=== PATIENT | female | born 1940 | race Caucasian/White ===

== ENCOUNTER → 2021-03-29 | Outpatient (CLI) | payer MEDICARE, OTHER ==
[2021-03-29 12:41] LABS: ALBUMIN 3.6 GM/DL (3.2-5.2); ALT/SGPT 18 U/L (12-78); AMYLASE 48 U/L (25-115); BILIRUBIN,DIRECT < 0.1 MG/DL (0.0-0.2); BILIRUBIN,TOTAL 0.3 MG/DL (0.2-1.0); LIPASE 103 U/L (73-393); TOTAL PROTEIN 6.8 GM/DL (6.4-8.2)
== END ==
LOC: M LAB 11:03
PROVIDERS: ATTEND Internal Medicine Gastroenterology
DX: R10.11 Right upper quadrant pain (principal)

== ENCOUNTER → 2021-06-28 | Outpatient (CLI) | payer MEDICARE, OTHER ==
[~2021-06-28] MED LIST: B-12100021 PO; CHRO400T4 PO; CVS5000S2 SL; D 1010002 PO; D-MA500C2 PO; FISH1000 PO; GYMNPOW PO; LEVO100T54 PO; LUTE20CA11 PO; METF-817 PO; OMEP-221 PO; PREDOPD OD; VITA250T20 PO; VITMTA PO; ZINC1TAB2 PO; [UNRECOGNIZED DRUG - CODE] PO; macuguard PO
== END ==
LOC: M LABSMTC 11:07
PROVIDERS: ATTEND Anesthesiology
DX: Z01.812 Encounter for preprocedural laboratory examination (principal); Z20.822 Contact with and (suspected) exposure to COVID-19

== ENCOUNTER 2021-07-03 06:34 | Day surgery (SDC) | payer MEDICARE, OTHER ==
[~2021-07-03] VITALS: Ht 152.4 cm; Wt 77.1 kg
[~2021-07-03 06:34] MED LIST changes: +NS 1,000 ML IV ONE; -OMEP-221 PO; +OMEP40CA5 PO
[2021-07-03] MEDS ORDERED: LIDOCAINE 2% 100MG/5ML SDV (FOR ANES.) As Ordered ONE (07:16)
[2021-07-03] MEDS ORDERED: propofoL 200 MG/20 ML VIAL As Ordered ONE (07:16)
[2021-07-03] MEDS ORDERED: fentaNYL 100 MCG/2 ML INJECTION As Ordered ONE (07:17)
[2021-07-03 08:15] VITALS: BP 133/64
[2021-09-26] MEDS ORDERED: DOCU100C16 PO (10:13)
[2021-09-26] MEDS ORDERED: LEVO50TA45 PO (10:13)
[2021-09-26] MEDS ORDERED: METF500T13 PO (10:13)
[2021-09-26] MEDS ORDERED: ASCO500T PO (10:20)
== END 2021-07-03 08:25 | disposition home or self-care (01) ==
LOC: M OPP 06:34
PROVIDERS: ATTEND Internal Medicine Gastroenterology
DX: R10.13 Epigastric pain (principal); R13.10 Dysphagia, unspecified; K22.2 Esophageal obstruction; K57.10 Diverticulosis of small intestine without perforation or abscess without bleeding; E11.9 Type 2 diabetes mellitus without complications; E03.9 Hypothyroidism, unspecified; Z88.5 Allergy status to narcotic agent; Z79.899 Other long term (current) drug therapy
CPT/HCPCS: 43239; 43249; 88305; J3010

== ENCOUNTER → 2021-09-28 | Outpatient (CLI) | payer MEDICARE, OTHER ==
[~2021-09-28] MED LIST changes: +ASCO500T PO; +DOCU100C16 PO; +LEVO50TA45 PO; +METF500T13 PO; -NS 1,000 ML IV ONE
== END ==
LOC: M LABSMTC 11:24
PROVIDERS: ATTEND Anesthesiology
DX: Z01.812 Encounter for preprocedural laboratory examination (principal); Z20.822 Contact with and (suspected) exposure to COVID-19

== ENCOUNTER 2023-08-08 09:34 | Day surgery (SDC) | payer MEDICARE, OTHER ==
[~2023-08-08] VITALS: Ht 149.9 cm; Wt 69.8 kg
[~2023-08-08 09:34] MED LIST changes: +A-10CAP2 PO; +CRAN400C PO; +GARL650C PO; +GERI8.6T PO; +MAG100TA PO; +NS 1,000 ML IV ONE; +OMEG-30 PO; +PANC1CAP3 PO; +SOYB50CA PO
[2023-08-08] MEDS ORDERED: LIDOCAINE 2% 100MG/5ML SDV (FOR ANES.) As Ordered ONE (11:23)
[2023-08-08] MEDS ORDERED: propofoL 200 MG/20 ML VIAL As Ordered ONE (11:23)
[2023-08-08] MEDS ORDERED: fentaNYL 100 MCG/2 ML INJECTION As Ordered ONE (11:42)
[2023-08-08 11:57] VITALS: TEMP 98.1
[2023-08-08 12:15] VITALS: BP 150/68; O2SAT 99
== END 2023-08-08 12:28 | disposition home or self-care (01) ==
LOC: M OPP 09:34
PROVIDERS: ATTEND Internal Medicine Gastroenterology
DX: D12.3 Benign neoplasm of transverse colon (principal); K59.00 Constipation, unspecified; K57.30 Diverticulosis of large intestine without perforation or abscess without bleeding; R10.84 Generalized abdominal pain; K64.8 Other hemorrhoids; K44.9 Diaphragmatic hernia without obstruction or gangrene; K57.10 Diverticulosis of small intestine without perforation or abscess without bleeding; R10.13 Epigastric pain; Z79.890 Hormone replacement therapy; Z88.5 Allergy status to narcotic agent
CPT/HCPCS: 43235; 45385; 88305; J3010